=== PATIENT | male | born 1990 | race African-American/Black ===

== ENCOUNTER → 2016-04-09 | Outpatient (CLI) | payer OTHER ==
[~2016-04-09] MED LIST: OXYC1TAB23 PO
[2016-04-09 14:15] LABS: EOS # 0.2 K/mm3 (0.0-0.50); EOS % 6.9 % (0.0-3.0); LARGE UNSTAINED CELL # 0.2 K/mm3 (0.0-0.4); LYMPH # 1.3 K/mm3 (1.5-6.5); LYMPH % 44.7 % (24.0-44.0); MEAN CORPUSCULAR HGB CONC 34.4 g/dl (32.0-36.5); MEAN CORPUSCULAR VOLUME 84.3 fl (80.0-96.0); MONO # 0.3 K/mm3 (0.0-0.8); MONO % 9.5 % (0.0-5.0); NEUTROPHILS % 32.8 % (36.0-66.0); PLATELET COUNT, AUTOMATED 148 k/mm3 (150-450); RED CELL DISTRIBUTION WIDTH 12.3 % (11.5-14.5)
[2016-04-09 14:16] LABS: MICROSCOPIC INDICATED? MAN YES (NO)
[2016-04-09 14:22] LABS: INR 1.09
[2016-04-09 14:25] LABS: BACTERIA, URINE NONE SEEN; HYALINE CAST, URINE NONE SEEN /lpf (0-1); MICROSCOPIC EXAM PERFORMED; SQUAMOUS EPITHELIAL CELL URINE NONE SEEN /hpf (SMALL AMT)
== END ==
LOC: M LAB 13:22
DX: R59.0 Localized enlarged lymph nodes (principal)

== ENCOUNTER → 2016-04-11 | Day surgery (SDC) | payer OTHER ==
[~2016-04-11] VITALS: Ht 190.5 cm; Wt 72.6 kg
[~2016-04-11] MED LIST changes: +BACITRACIN OINT 30GM As Ordered ONE; +GLYCOPYRROLATE INJ 0.2 MG/ML 2 ML VIAL As Ordered ONE; +LIDOCAINE 2% INJ 100 MG/5 ML SDV (FOR ANES.) As Ordered ONE; +LIDOCAINE W/EPINEPHRINE 1% 20ML VIAL As Ordered ONE; +LIDOCAINE W/EPINEPHRINE 1% 20ML VIAL XX ONE; +LR 1,000 ML IV SCH; +METOCLOPRAMIDE INJ 10MG/2ML VIAL (J2765) IV PRN; +MIDAZOLAM INJ 2 MG/2 ML VIAL (J2250) As Ordered ONE; +NEOSTIGMINE 1MG/ML 5 ML SYRINGE (J2710) As Ordered ONE; +ONDANSETRON 4MG/2ML VIAL (J2405) As Ordered ONE; +ONDANSETRON 4MG/2ML VIAL (J2405) IV PRN; +PERCOCET 5MG/325MG TAB PO PRN; +PROPOFOL 200 MG/20 ML VIAL As Ordered ONE; +ROCURONIUM BROMIDE 50 MG/5 ML VIAL As Ordered ONE; +fentaNYL 100 MCG/2 ML INJECTION (J3010) IV PRN; +fentaNYL 250 MCG/5 ML INJECTION (J3010) As Ordered ONE
[2016-04-11] MEDS: LR 1,000 ML IV SCH ×2 (08:18→08:19)
[2016-04-11 12:20] VITALS: BP 159/60
--- NOTE | 2016-04-11 21:46 | RO ---
DATE OF PROCEDURE: 04/11/2016 PREPROCEDURE DIAGNOSIS: Chronic cervical lymphadenopathy. POSTPROCEDURE DIAGNOSIS: Chronic cervical lymphadenopathy. PROCEDURE: Excisional biopsy of a deep right cervical node. SURGEON: Dr. Michael Montes De Oca [employer] SUPERVISOR: ANESTHESIA: DESCRIPTION OF PROCEDURE: The patient was moved to the operating table in a supine position after the induction of general anesthesia and placement of endotracheal tube. A roll was placed under the shoulders to extend the neck and the head was turned towards the left exposing the right neck. An incision was then marked on the skin with a marking pen, approximately 3 cm below the margin of the mandible, beginning at the level of the sternocleidomastoid muscle and extending anteriorly in a skin crease, approximately 4 cm in length. This was then infiltrated with 6 mL of 1% Xylocaine with epinephrine 1:100,000. The neck was then prepped and draped in appropriate manner for excisional biopsy of deep neck node using Betadine scrub and solution. Skin incision at the previously marked spot was then made using a scalpel. Hemostasis from skin bleeders was achieved using electrocautery. Then using cutting cautery, the incision was carried down through the platysma muscle. Large vessels that were encountered were cross-clamped, transected and tied with #3-0 silk ties. After opening the platysma muscle, the superficial layer of the deep cervical fascia was then opened using blunt dissection and the Harmonic scalpel. Dissection was then carried superiorly through the easily palpable node. Once the neck was opened deep enough to visualize the node, using the Harmonic scalpel and blunt dissection, the node was freed from surrounding tissue and removed. It was sent to pathology in a fresh state for lymph node protocol. The wound was then irrigated with normal saline solution. The platysma muscle was closed using interrupted sutures of #3-0 chromic. The subcutaneous tissue was closed using interrupted sutures of #3-0 chromic and the skin was closed using interrupted sutures of #4-0 nylon. Antibiotic ointment and a dressing was applied to the neck and the procedure was terminated. The lymph node that was excised measured 1.8 x 2.5 cm in size. The patient tolerated the procedure well and left the operating room in good condition. Sponge and needle counts were correct. The estimated blood loss for the procedure was 15 mL.
== END | disposition home or self-care (01) ==
LOC: M SDC 07:13
DX: R59.0 Localized enlarged lymph nodes (principal)
CPT/HCPCS: 38510; 88305; J2250; J2405; J2710; J3010